=== PATIENT | male | born 1985 | race Caucasian/White ===

== ENCOUNTER 2020-05-25 03:46 | Emergency (ER) | payer OTHER ==
[~2020-05-25] VITALS: Ht 190.5 cm; Wt 113.4 kg
[2020-05-25 04:54] LABS: URINE BILIRUBIN 2+ (Negative); URINE BLOOD NEGATIVE (Negative); URINE CLARITY SL CLOUDY; URINE COLOR YELLOW; URINE GLUCOSE-RANDOM* NEGATIVE (Negative); URINE KETONES NEGATIVE (Negative); URINE LEUKOCYTES-REFLEX NEGATIVE (Negative); URINE NITRITE-REFLEX NEGATIVE (Negative); URINE PROTEIN (DIPSTICK) 1+ (Negative); URINE SPECIFIC GRAVITY >= 1.030 (1.005-1.035)
[2020-05-25 04:58] LABS: AMP/METHAMP POSITIVE (Negative); BARBITURATES Negative (Negative); BENZODIAZEPINES POSITIVE (Negative); COCAINE Negative (Negative); METHADONE Negative (Negative); OPIATES Negative (Negative); PCP Negative (Negative)
[2020-05-25 05:04] LABS: ABSOLUTE NEUTROPHILS 13.9 thou/uL (1.4-8.2); BASOPHILS 0.5 % (0.0-2.0); EOSINOPHILS 0.1 % (0.0-3.0); HEMATOCRIT 38.1 % (42.0-52.0); HEMOGLOBIN 12.7 gm/dL (14.0-18.0); LYMPHOCYTES 7.3 % (24.0-44.0); MCH 29.3 pg (26.0-34.0); MCHC 33.3 g/dL (28.0-37.0); MCV 88.1 fL (80.0-100.0); MONOCYTES 4.8 % (1.0-8.0); PLATELET COUNT 333 thou/uL (150-400); POLYS 87.3 % (36.0-66.0); RBC 4.33 mil/uL (4.50-6.00); RDW 12.4 % (10.5-14.5); WBC 15.9 thou/uL (4.0-11.0)
[2020-05-25 05:09] LABS: SQUAMOUS 4-10 Moderate /LPF (0-3)
[2020-05-25 05:10] LABS: BACTERIA-REFLEX 1-9 Few /HPF (None Seen); CASTS None Seen /LPF (None Seen); CRYSTALS None Seen /LPF (None Seen); MUCUS >6 Heavy strn/LPF (None Seen); URINE RBC 0-2 Rare /HPF (0-2); URINE WBC-REFLEX 0-5 Rare /HPF (0-5)
[2020-05-25 05:22] LABS: ALBUMIN 3.6 g/dL (3.4-5.0); ANION GAP 15 mmol/L (7-16); BUN 11 mg/dL (7-18); CHLORIDE 103 mmol/L (98-107); CO2 24 mmol/L (21-32); CREATININE 1.3 mg/dL (0.7-1.3); DIRECT BILIRUBIN 0.2 mg/dL (<0.1-0.2); GLUCOSE 101 mg/dL (74-106); SALICYLATE < 2.8 mg/dL (2.8-20.0); SGOT 41 U/L (15-37); SGPT 69 U/L (16-63); SODIUM 142 mmol/L (136-145); TOTAL BILIRUBIN 0.6 mg/dL (0.2-1.0); TOTAL PROTEIN 7.1 g/dL (6.4-8.2); TROPONIN-I <0.06 ng/mL (<0.06)
[2020-05-25 05:24] LABS: POTASSIUM 2.7 mmol/L (3.5-5.1)
--- NOTE | 2020-05-27 07:21 | EKG ---
[address] [address] ELECTROCARDIOGRAM REPORT Name: KEVIN METCALF Room #: REG [facility]ITALMarg[facility]ita[facility] [id number] Admission: 05/25/20 Attend Phys: Discharge: Date of : 89 Report #: [id number] [facility] ED Test Date: 2020-05-25 Test Time: 04:37:52 Pat Name: KEVIN METCALF Department: Room: Gender: M Trading Manager: eleno : 1985 Requested By: Scottie Mckinley Order Number: [id number] MD: Barry Huizar Measurements Intervals [place] Rate: 112 P: 32 WA: 158 QRS: 77 QRSD: 121 T: 35 QT: 350 QTc: 478 Interpretive Statements Sinus tachycardia Nonspecific intraventricular conduction delay Probable lateral infarct, old No previous ECG available for comparison Electronically Signed On 05-27-2020 7:21:27 CDT by Barry Huizar [email or web address] <ELECTRONICALLY SIGNED> By: Barry Huizar MD, [facility] 05/27/20 0721 0437 [id number] Barry Huizar MD, FACC /EPI
[2020-05-27 12:42] LABS: HEMATOCRIT 42.2 % (42.0-52.0); HEMOGLOBIN 14.2 gm/dL (14.0-18.0); MCHC 33.6 g/dL (28.0-37.0); MCV 89.2 fL (80.0-100.0); RBC 4.73 mil/uL (4.50-6.00); RDW 12.4 % (10.5-14.5)
[2020-05-27 12:46] LABS: CALCIUM 9.1 mg/dL (8.5-10.1); CREATININE 0.7 mg/dL (0.7-1.3); POTASSIUM 4.2 mmol/L (3.5-5.1)
[2020-05-27 14:33] VITALS: BP 112/67
== END 2020-05-27 14:44 | disposition home or self-care (01) ==
LOC: ER 03:46
PROVIDERS: Emergency Medicine; Psychiatry & Neurology Psychiatry
DX: U07.1 COVID-19 (principal); S00.81XA Abrasion of other part of head, initial encounter; T79.6XXA Traumatic ischemia of muscle, initial encounter; R41.82 Altered mental status, unspecified; E87.6 Hypokalemia; F23 Brief psychotic disorder; R45.851 Suicidal ideations; F15.229 Other stimulant dependence with intoxication, unspecified; F32.9 Major depressive disorder, single episode, unspecified; F24 Shared psychotic disorder; Y04.0XXA Assault by unarmed brawl or fight, initial encounter; Y93.89 Activity, other specified; Y92.89 Other specified places as the place of occurrence of the external cause; Y99.9 Unspecified external cause status